=== PATIENT | male | born 1975 ===

== ENCOUNTER → 2018-09-27 21:25 | Outpatient (REF) | payer OTHER, SELFPAY ==
[2018-09-27 23:17] LABS: Hep C Virus Ab w/Reflex Quant NEGATIVE s/c (NEGATIVE); Hepatitis B Surface Antigen NEGATIVE s/c (NEGATIVE)
[2018-09-28 04:19] LABS: Lipase 97 U/L (23-300)
[2018-09-28 04:21] LABS: C-Reactive Protein Quant < 0.5 mg/dL (<1.0)
[2018-09-29 15:37] LABS: Hepatitis B Surf AB Imm QUANT < 5 mIU/mL (> 9)
[2018-10-01 10:51] LABS: HIV Ag/Ab, 4th Gen Nonreactive (Nonreactive)
[2018-10-02 14:11] LABS: Hepatitis B Surf Ab Qualitativ Nonreactive (Nonreactive)
== END ==
LOC: LAB 21:25
PROVIDERS: Visit Provider Naturopath
DX: F17.221 Nicotine dependence, chewing tobacco, in remission (principal); R53.83 Other fatigue; R63.4 Abnormal weight loss; R73.03 Prediabetes
CPT/HCPCS: 83690; 86140; 86317; 86703; 86706; 86803; 87340